=== PATIENT | male | born 1970 | race Caucasian/White ===

== ENCOUNTER 2017-11-21 19:43 | Emergency (ER) | payer SELFPAY ==
[~2017-11-21] VITALS: Ht 182.9 cm; Wt 85.2 kg
[2017-11-21 19:47] VITALS: BP 115/83
[2017-11-21] MEDS ORDERED: HYDROmorphone 1 MG/ML, 1ML ONE (20:17)
[2017-11-21] MEDS ORDERED: ONDANSETRON 2MG/ML, 2ML ONE (20:22)
[2017-11-21] MEDS ORDERED: HYDROmorphone 1 MG/ML, 1ML IVPush PRN (20:30)
[2017-11-21] MEDS ORDERED: ONDANSETRON 2MG/ML, 2ML IVPush ONE (20:30)
== END 2017-11-21 21:45 | disposition home or self-care (01) ==
LOC: ED 21:01
DX: N45.1 Epididymitis (principal)
CPT/HCPCS: 76870; 96374; 96375; 99284; J1170; J2405

== ENCOUNTER 2018-10-28 04:28 | Observation (INO) | payer MEDICAID ==
[~2018-10-28] VITALS: Ht 180.3 cm; Wt 75.0 kg
--- NOTE | 2018-10-28 04:41 | NUR ---
MEDICAL CLEARENCE FOR [place], PT OMN LEGAL 2000
--- NOTE | 2018-10-28 05:02 | NUR ---
PT BEDSIDE REPORT FROM OLIVIA WELCH. THIS RN TO ASSUME CARE OF PT. ROLLER DOORS IN PLACE. SITTER IN HALLWAY. NADN. GIVEN WARM BLANKETS FOR COMFORT.
--- NOTE | 2018-10-28 05:03 | NUR ---
PT STATES SI W/ PLAN OF TAKING "PILLS" TO OVERDOSE. STATES HE HAS EASY ACCESS TO PILLS AND HAS HX OF SI IN THE PAST.
[2018-10-28 05:19] LABS: BASOPHILS # (AUTO) 0.06 x10^3/uL (0-0.1); BASOPHILS % (AUTO) 1 % (0-1); EOSINOPHILS % (AUTO) 1 % (1-7); LYMPHOCYTES # (AUTO) 2.62 x10^3/uL (1-3.4); LYMPHOCYTES % (AUTO) 30 % (22-44); MD NO; MEAN CORPUSCULAR HEMOGLOBIN 30.9 pg (27.5-34.5); MEAN CORPUSCULAR HGB CONC 33.8 g/dL (33.2-36.2); MEAN CORPUSCULAR VOLUME 91.3 fL (81-97); MEAN PLATELET VOLUME 7.9 fL (7.4-10.4); MONOCYTES % (AUTO) 9 % (2-9); NEUTROPHILS % (AUTO) 59 % (42-75); PLATELET COUNT 290 x10^3/uL (130-400); RED BLOOD COUNT 4.62 x10^6/uL (4.38-5.82); RED CELL DISTRIBUTION WIDTH 13.4 % (9.4-14.8)
[2018-10-28 05:39] LABS: ALBUMIN 3.8 g/dL (3.4-5.0); ANION GAP 5 mmol/L (5-15); CALCIUM 8.6 mg/dL (8.5-10.1); CHLORIDE 107 mmol/L (98-107)
--- NOTE | 2018-10-28 05:40 | NUR ---
PT RESTING COMFORTABLY ON GURNEY. ANDREWN. SITTER IN HALLWAY. ROLLER DOORS IN PLACE.
[2018-10-28 05:44] LABS: ACETAMINOPHEN 3 mcg/mL (10-30); ALANINE AMINOTRANSFERASE 58 U/L (12-78); ALKALINE PHOSPHATASE 76 U/L (45-117); BILIRUBIN,TOTAL 0.3 mg/dL (0.2-1.0); CREATININE 0.87 mg/dL (0.7-1.3); TOTAL PROTEIN 7.1 g/dL (6.4-8.2)
[2018-10-28 05:49] LABS: SALICYLATE LEVEL < 1.7 mg/dL (2.8-20.0)
--- NOTE | 2018-10-28 06:58 | NUR ---
pt informed on need of urine, states he "just went"
[2018-10-28 07:37] LABS: AMPHETAMINE SCREEN, URINE Positive (Negative); BARBITURATE SCREEN, URINE Negative (Negative); BENZODIAZEPINE SCREEN, URINE Negative (Negative); CANNABINOID SCREEN, URINE Positive (Negative); COCAINE SCREEN, URINE Negative (Negative); METHADONE SCREEN, URINE Negative (Negative); OPIATE SCREEN, URINE Positive (Negative)
--- NOTE | 2018-10-28 08:04 | NUR ---
pt on telepsych call via robot
--- NOTE | 2018-10-28 08:19 | NUR ---
REPORT GIVEN TO SOC DOCTOR
--- NOTE | 2018-10-28 08:27 | NUR ---
BREAKFAST PROVIDED WITH SAFETY PRECAUTIONS IN PLACE
--- NOTE | 2018-10-28 09:55 | NUR ---
THROUGHPUT: PER KANDICE AT [facility], NEW PATIENT PACKET FAXED TO [facility]. RAFAEL TO TAKE PATIENT AFTER REVIEWED BY . RAFAEL CONFIRMED FAXED PACKET.
[2018-10-28] MEDS ORDERED: MULTIVITAMIN 1 TABLET PO SCH (10:30)
[2018-10-28] MEDS ORDERED: FOLIC ACID 1 MG TABLET PO SCH (10:30)
[2018-10-28] MEDS ORDERED: ACETAMINOPHEN 325 MG TABLET PO PRN (10:30)
[2018-10-28] MEDS ORDERED: ZIPRASIDONE 20 MG INJ IM PRN (10:30)
[2018-10-28] MEDS ORDERED: LORazepam 1MG TABLET PO PRN (10:30)
[2018-10-28] MEDS ORDERED: THIAMINE 100MG TABLET PO SCH (10:30)
[2018-10-28 10:40] VITALS: BP 131/89
== END 2018-10-28 15:11 ==
LOC: ED 05:16 → EDIP 09:26 → 2N 10:32
PROVIDERS: ADMIT Internal Medicine; ATTEND Internal Medicine
DX: R45.851 Suicidal ideations (principal); F32.9 Major depressive disorder, single episode, unspecified; F17.200 Nicotine dependence, unspecified, uncomplicated; F15.20 Other stimulant dependence, uncomplicated; F23 Brief psychotic disorder; Z91.5 Personal history of self-harm
CPT/HCPCS: 36415; 80053; 80307; 80329; 85025; 99284; G0378; G0480